=== PATIENT | male | born 1960 | race Caucasian/White ===

== ENCOUNTER 2016-06-20 16:23 | Emergency (ER) | payer MEDICARE ==
[2016-06-20 16:56] VITALS: PULSE 86; RESP 18
[2016-06-20 19:22] VITALS: BP 127/58; TEMP 98.8
[2016-06-20 19:36] LABS: Basophils # (A) 0.1 k/uL (0-0.2); Basophils % (A) 1 %; CH 30.6; CHCM 34.9; Eosinophils # (A) 0.3 k/uL (0-0.7); Eosinophils % (A) 2 %; HDW 2.78; HGB 15.2 gm/dL (13.0-17.5); Luc % (Auto) 2; Lymphocytes % (A) 14 %; MCH 29.8 pg (25.0-35.0); MCHC 33.8 g/dL (31.0-37.0); MCV 88.1 fL (80.0-100.0); Mean Platelet Volume 7.8; Monocytes # (A) 1.2 k/uL (0-1.0); Monocytes % (A) 8 %; Neutrophils # (A) 10.1 k/uL (1.3-7.7); Neutrophils % (A) 73 %; RBC 5.11 m/uL (4.30-5.90); RDW 14.1 % (11.5-15.5); WBC 13.8 k/uL (3.8-10.6); WBC (Perox) 13.78
--- NOTE | 2016-06-20 19:38 | XR ---
EXAMINATION TYPE: XR foot complete LT DATE OF EXAM: 06/20/2016 7:32 PM COMPARISON: NONE HISTORY: Foot pain TECHNIQUE: 3 views FINDINGS: There is soft tissue swelling in the forefoot. There is a large plantar calcaneal spur. Met atarsals are intact. I see no fracture nor dislocation. There are no erosions. IMPRESSION: Calcaneal spurring. No fracture. Soft tissue swelling.
--- NOTE | 2016-06-20 19:39 | ED ---
Extremity Problem HPI - General Source: patient, RN notes reviewed Mode of arrival: wheelchair Limitations: no limitations <Malcolm Rosenberg - Last Filed: 06/20/16 19:37> <Ovidio Castaneda - Last Filed: 06/20/16 21:14> - General Chief complaint: Extremity Problem,Nontraumatic Stated complaint: Left Leg Swollen/Pain Time Seen by Provider: 06/20/16 18:59 - History of Present Illness Initial comments: 55-year-old male presents emergency Department with chief complaint left foot pain. Patient states started over the last day or so. Patient denies any trauma. Patient states he has some achy pain at rest but states it's intense pain when he steps on it. Patient denies any previous issues or known trauma. Patient states that his legs are normally so swollen which she takes Lasix 2 times a day for. Patient denies any increased swelling. Patient denies any redness, open sores, rashes. Patient states it's in the arch of his foot with states it does radiate up into his calf sometimes. Patient states he does have bad knee has left side but states it has not given any more trouble than usual. Patient denies any discoloration of his foot. Patient offers no complaints. ( Malcolm Rosenberg) - Related Data Home Medications Medication Instructions Recorded Confirmed Multivitamin [Men's Multi-Vitamin] 1 tab PO DAILY 03/19/14 06/20/16 Albuterol Sulfate [Proair Hfa] 2 puff INHALATION RT-Q6H PRN 07/06/14 06/20/16 Aspirin EC [Ecotrin] 325 mg PO DAILY 07/06/14 06/20/16 amLODIPine BESYLATE [Amlodipine 5 mg PO DAILY 07/06/14 06/20/16 Besylate] Albuterol Nebulized [Ventolin 2.5 mg INHALATION RT-QID PRN 07/23/14 06/20/16 Nebulized] hydrALAZINE HCL [Apresoline] 25 mg PO BID 07/23/14 06/20/16 Warfarin [Coumadin] 2.5 mg PO HS 11/14/14 06/20/16 Warfarin [Coumadin] 5 mg PO HS 11/14/14 06/20/16 Furosemide [Lasix] 40 mg PO BID@0900,1600 05/18/15 06/20/16 Lisinopril-Hctz 20-25 mg 1 tab PO DAILY 05/19/15 06/20/16 [Zestoretic 20-25] HYDROcodone/APAP 7.5-325MG [[place] 1 tab PO Q6HR PRN 06/20/16 06/20/16 7.5-325] Previous Rx's Medication Instructions Recorded Atorvastatin [Lipitor] 40 mg PO HS #30 tab 07/11/14 Metoprolol Tartrate [Lopressor] 50 mg PO TID #90 tab 07/11/14 Nitroglycerin Sl Tabs [Nitrostat] 0.4 mg SUBLINGUAL Q5M PRN #50 tab 07/11/14 Indomethacin [Indocin] 50 mg PO TID #30 capsule 06/20/16 Allergies Allergy/AdvReac Type Severity Reaction Status Date / Time No Known Allergies Allergy Verified 06/20/16 19:23 Review of Systems ROS Other: All systems not noted in ROS Statement are negative. <Malcolm Rosenberg - Last Filed: 06/20/16 19:37> ROS Other: All systems not noted in ROS Statement are negative. <Ovidio Castaneda - Last Filed: 06/20/16 21:14> ROS Statement: Those systems with pertinent positive or pertinent negative responses have been documented in the HPI. Past Medical History Past Medical History: Atrial Fibrillation, Asthma, Heart Failure, Hypertension, Sleep Apnea/CPAP/BIPAP Additional Past Medical History / Comment(s): 2L O2 dependant. arthritis - L knee, R ankle. Sleep apnea - home BiPap. irregular heart rate. MRSA infections on forehead,right groin,left axilla History of Any Multi-Drug Resistant Organisms: MRSA Date of last positivie culture/infection: 03/07/15 MDRO Source:: Right Forearm Past Surgical History: Tonsillectomy Past Anesthesia/Blood Transfusion Reactions: No Reported Reaction Past Psychological History: No Psychological Hx Reported Smoking Status: Former smoker Past Alcohol Use History: Occasional Additional Past Alcohol Use History / Comment(s): 3 drinks per week Past Drug Use History: Marijuana Additional Drug Use History / Comment(s): occassional marijuana use - Past Family History Father Family Medical History: Hypertension, Myocardial Infarction ([place]) Mother Family Medical History: Cancer, Diabetes Mellitus Additional Family Medical History / Comment(s): of breast cancer Sister(s) Family Medical History: Cancer Additional Family Medical History / Comment(s): breast cancer - mastectomy <Malcolm Rosenberg - Last Filed: 06/20/16 19:37> General Exam Limitations: no limitations General appearance: alert, in no apparent distress Head exam: Present: atraumatic, normocephalic, normal inspection Respiratory exam: Present: normal lung sounds bilaterally. Absent: respiratory distress, wheezes, rales, rhonchi, stridor Cardiovascular Exam: Present: regular rate, normal rhythm, normal heart sounds. Absent: systolic murmur, diastolic murmur, rubs, gallop, clicks Extremities exam: Present: other (Mild tenderness to plantar surface of left foot pedal pulses equal bilaterally, there is pitting edema noted bilaterally there is no calf tenderness patient is full range of motion of lower extremity) Skin exam: Present: warm, dry <Malcolm Rosenberg - Last Filed: 06/20/16 19:37> General appearance: alert, in no apparent distress Head exam: Present: atraumatic, normocephalic, normal inspection Eye exam: Present: normal appearance, PERRL, EOMI. Absent: scleral icterus, conjunctival injection, periorbital swelling ENT exam: Present: normal exam, mucous membranes moist Neck exam: Present: normal inspection. Absent: tenderness, meningismus, lymphadenopathy Respiratory exam: Present: normal lung sounds bilaterally. Absent: respiratory distress, wheezes, rales, rhonchi, stridor Cardiovascular Exam: Present: regular rate, normal rhythm, normal heart sounds. Absent: systolic murmur, diastolic murmur, rubs, gallop, clicks GI/Abdominal exam: Present: soft, normal bowel sounds. Absent: distended, tenderness, guarding, rebound, rigid Extremities exam: Present: normal inspection, full ROM, normal capillary refill. Absent: tenderness, pedal edema, joint swelling, calf tenderness Back exam: Present: normal inspection Neurological exam: Present: alert, oriented X3, CN II-XII intact Psychiatric exam: Present: normal affect, normal mood Skin exam: Present: warm, dry, intact, normal color. Absent: rash <Ovidio Castaneda - Last Filed: 06/20/16 21:14> Course <Malcolm Rosenberg - Last Filed: 06/20/16 19:37> <Ovidio Castaneda - Last Filed: 06/20/16 21:14> Vital Signs 06/20/16 06/20/16 16:52 19:18 Temperature 98.7 F 98.8 F Pulse Rate 86 86 Respiratory 18 18 Rate Blood Pressure 121/66 127/58 O2 Sat by Pulse 96 96 Oximetry - Reevaluation(s) Reevaluation #1: 06/20/16 21:09 Patient's pain breathing or improved this time (Ovidio Castaneda) Reevaluation #2: 06/20/16 21:09 Patient consult regarding seeing a hospital, but to try outpatient therapy ( Ovidio Castaneda) Medical Decision Making <Malcolm Rosenberg - Last Filed: 06/20/16 19:37> - Lab Data Result diagrams: 06/20/16 19:15 06/20/16 19:15 - Radiology Data Radiology results: report reviewed (X-ray left foot. negative for acute disease , chest x-ray negative for acute disease,(s) lower extremity negative for DVT), image reviewed <Ovidio Castaneda - Last Filed: 06/20/16 21:14> - Medical Decision Making 55 male to the ER with left foot pain. Patient has left ankle pain worse with standing and left ankle. Patient has no real physical activity, likely swelling and mild erythema. Likely gout. Patient be treated appropriately, and formerly does have worsening kidney function to increase oral intake of fluids, patient's pain is currently controlled in the emergency room. Patient can be discharged home (Ovidio Castaneda) - Lab Data Lab Results 06/20/16 06/20/16 06/20/16 Range/Units 19:15 19:15 19:15 WBC 13.8 H (3.8-10.6) k/uL RBC 5.11 (4.30-5.90) m/uL Hgb 15.2 (13.0-17.5) gm/dL Hct 45.0 (39.0-53.0) % MCV 88.1 (80.0-100.0) fL MCH 29.8 (25.0-35.0) pg MCHC 33.8 (31.0-37.0) g/dL RDW 14.1 (11.5-15.5) % Plt Count 258 (150-450) k/uL Neutrophils % 73 % Lymphocytes % 14 % Monocytes % 8 % Eosinophils % 2 % Basophils % 1 % Neutrophils # 10.1 H (1.3-7.7) k/uL Lymphocytes # 2.0 (1.0-4.8) k/uL Monocytes # 1.2 H (0-1.0) k/uL Eosinophils # 0.3 (0-0.7) k/uL Basophils # 0.1 (0-0.2) k/uL PT 48.8 H (9.0-12.0) sec INR 4.9 (<1.1) Sodium 140 (137-145) mmol/L Potassium 3.8 (3.5-5.1) mmol/L Chloride 99 (98-107) mmol/L Carbon Dioxide 27 (22-30) mmol/L Anion Gap 14 mmol/L BUN 31 H (9-20) mg/dL Creatinine 2.10 H (0.66-1.25) mg/dL Est GFR (MDRD) Af Amer 40 (>60 ml/min/1.73 sqM) Est GFR (MDRD) Non-Af 33 (>60 ml/min/1.73 sqM) Glucose 106 H (74-99) mg/dL Calcium 9.0 (8.4-10.2) mg/dL Total Bilirubin 0.7 (0.2-1.3) mg/dL AST 23 (17-59) U/L ALT 37 (21-72) U/L Alkaline Phosphatase 57 (38-126) U/L C-Reactive Protein 48.8 H (<10.0) mg/L Total Protein 7.0 (6.3-8.2) g/dL Albumin 4.1 (3.5-5.0) g/dL Disposition <Malcolm Rosenberg - Last Filed: 06/20/16 19:37> <Ovidio Castaneda - Last Filed: 06/20/16 21:14> Clinical Impression: Gout, Morbid exogenous obesity, Gout of left ankle Disposition: HOME SELF-CARE Condition: Fair Prescriptions: Indomethacin [Indocin] 50 mg PO TID #30 capsule Referrals: Zak Padilla MD [Primary Care Provider] - 1-2 days
[2016-06-20 19:45] LABS: C Reactive Protein 48.8 mg/L (<10.0); Potassium 3.8 mmol/L (3.5-5.1); Total Bilirubin 0.7 mg/dL (0.2-1.3)
--- NOTE | 2016-06-20 20:05 | US ---
EXAMINATION TYPE: US venous doppler duplex LE LT DATE OF EXAM: 06/20/2016 7:55 PM COMPARISON: NONE CLINICAL HISTORY: Pain. Left leg pain and swelling SIDE PERFORMED: Left VESSELS IMAGED: External Iliac Vein (EIV) Common Femoral Vein Deep Femoral Vein Greater Saphenous Vein * Femoral Vein Popliteal Vein Small Saphenous Vein * Proximal Calf Veins (* superficial vessels) TECHNOLOGIST IMPRESSION: Morbidly obese pt, difficult exam Left Leg: Negative for DVT IMPRESSION: Negative exam. No evidence of deep venous thrombosis in the left leg.
[2016-06-20 20:41] LABS: INR 4.9 (<1.1); Prothrombin Time 48.8 sec (9.0-12.0)
[2016-06-20] MEDS ORDERED: SODIUM CHLORIDE 0.9% 500 ML IV STA (21:06)
[2016-06-20] MEDS ORDERED: KETOROLAC 30 MG/ML 1 ML VIAL IVP STA (21:06)
[2016-06-20] MEDS ORDERED: MORPHINE SULFATE 4 MG/ML SYRINGE IVP STA (21:06)
[2016-06-20] MEDS ORDERED: ACETAMINOPHEN IV (For NPO) 1,000 MG in EMPTY BAG 1 BAG IVPB STA (21:06)
[2016-06-20] MEDS ORDERED: DEXAMETHASONE SOD PHOSPHATE 10 MG/ML 1 ML VIAL IV STA (21:06)
[2016-06-20] MEDS ORDERED: IPRATROPIUM-ALBUTEROL 3 ML NEB INHALATION STA (21:08)
--- NOTE | 2016-06-20 21:51 | XR ---
EXAMINATION TYPE: XR chest 1V portable DATE OF EXAM: 06/20/2016 9:42 PM COMPARISON: 09/18/2015 HISTORY: Foot pain TECHNIQUE: Single frontal view of the chest is obtained. FINDINGS: There is no heart failure nor confluent pneumonic infiltrate. There are no hilar masses. C ostophrenic angles are clear. Bony thorax is intact. IMPRESSION: No active cardiopulmonary disease. No change.
== END 2016-06-20 22:45 | disposition home or self-care (01) ==
LOC: EC 16:23
DX: M10.9 Gout, unspecified (principal); E66.09 Other obesity due to excess calories; I50.9 Heart failure, unspecified; M19.90 Unspecified osteoarthritis, unspecified site; I10 Essential (primary) hypertension; I48.91 Unspecified atrial fibrillation; J45.909 Unspecified asthma, uncomplicated; Z53.20 Procedure and treatment not carried out because of patient's decision for unspecified reasons; Z86.14 Personal history of Methicillin resistant Staphylococcus aureus infection; Z87.891 Personal history of nicotine dependence; Z79.01 Long term (current) use of anticoagulants; Z79.82 Long term (current) use of aspirin; Z79.899 Other long term (current) drug therapy; Z99.81 Dependence on supplemental oxygen
CPT/HCPCS: 36415; 80053; 85025; 85610; 86140; 71010; 73630; 93971; 99284; 96365; 96375 ×3; J2270; J1100; J1885; J0131

== ENCOUNTER 2016-11-22 14:48 | Emergency (ER) | payer MEDICARE ==
[2016-11-22 15:09] VITALS: BP 133/58; PULSE 84; RESP 20; TEMP 98.2
[2016-11-22] MEDS ORDERED: MORPHINE SULFATE 10 MG/ML SYRINGE IM STA (15:38)
--- NOTE | 2016-11-22 15:49 | ED ---
Extremity Problem HPI - General Chief complaint: Extremity Problem,Nontraumatic Stated complaint: Knee Pain Time Seen by Provider: 11/22/16 15:10 Source: patient, RN notes reviewed Mode of arrival: wheelchair Limitations: no limitations - History of Present Illness Initial comments: Patient is a 56-year-old male presents emergency room for evaluation of left knee pain. Patient states she has a history of chronic knee pain from arthritis. Patient states he was moving boxes around yesterday. Patient states today he woke up and has been having worsening left knee pain. Patient states the pain is radiating to his calf and it also feels very tight. Patient states he takes Coumadin daily for A. fib. Patient denies history of DVTs or PEs. Patient states he's having 10 out of 10 knee pain. Patient states he is taking Clio at home with no relief of symptoms. Patient denies any specific injury or trauma to his knee recently. Patient denies increased swelling. Patient denies numbness or tingling in his toes. Patient denies any other symptoms or complaints. - Related Data Home Medications Medication Instructions Recorded Confirmed Multivitamin [Men's Multi-Vitamin] 1 tab PO DAILY 03/19/14 11/22/16 Albuterol Sulfate [Proair Hfa] 2 puff INHALATION RT-Q6H PRN 07/06/14 11/22/16 Aspirin EC [Ecotrin] 325 mg PO DAILY 07/06/14 11/22/16 amLODIPine BESYLATE [Amlodipine 5 mg PO DAILY 07/06/14 11/22/16 Besylate] hydrALAZINE HCL [Apresoline] 25 mg PO BID 07/23/14 11/22/16 Warfarin [Coumadin] 2.5 mg PO HS 11/14/14 11/22/16 Warfarin [Coumadin] 5 mg PO HS 11/14/14 11/22/16 Furosemide [Lasix] 40 mg PO TID 05/18/15 11/22/16 Lisinopril-Hctz 20-25 mg 1 tab PO DAILY 05/19/15 11/22/16 [Zestoretic 20-25] HYDROcodone/APAP 7.5-325MG [[place] 1 tab PO Q6HR PRN 06/20/16 11/22/16 7.5-325] Previous Rx's Medication Instructions Recorded Atorvastatin [Lipitor] 40 mg PO HS #30 tab 02/17/15 Metoprolol Tartrate [Lopressor] 50 mg PO TID #90 tab 07/11/14 Nitroglycerin Sl Tabs [Nitrostat] 0.4 mg SUBLINGUAL Q5M PRN #50 tab 07/11/14 Orphenadrine [Norflex] 100 mg PO Q12H PRN #12 tablet.er 11/22/16 Allergies Allergy/AdvReac Type Severity Reaction Status Date / Time No Known Allergies Allergy Verified 11/22/16 15:13 Review of Systems ROS Statement: Those systems with pertinent positive or pertinent negative responses have been documented in the HPI. ROS Other: All systems not noted in ROS Statement are negative. Past Medical History Past Medical History: Atrial Fibrillation, Asthma, Heart Failure, Hypertension, Sleep Apnea/CPAP/BIPAP Additional Past Medical History / Comment(s): 2L O2 dependant. arthritis - L knee, R ankle. Sleep apnea - home BiPap. irregular heart rate. MRSA infections on forehead,right groin,left axilla History of Any Multi-Drug Resistant Organisms: MRSA Date of last positivie culture/infection: 03/07/15 MDRO Source:: Right Forearm Past Surgical History: Tonsillectomy Past Anesthesia/Blood Transfusion Reactions: No Reported Reaction Past Psychological History: No Psychological Hx Reported Smoking Status: Former smoker Past Alcohol Use History: Occasional Past Drug Use History: Marijuana - Past Family History Father Family Medical History: Hypertension, Myocardial Infarction ([place]) Mother Family Medical History: Cancer, Diabetes Mellitus Additional Family Medical History / Comment(s): of breast cancer Sister(s) Family Medical History: Cancer Additional Family Medical History / Comment(s): breast cancer - mastectomy General Exam - General Exam Comments Initial Comments: Sitting in wheelchair, no acute distress. Limitations: no limitations General appearance: alert, in no apparent distress Head exam: Present: atraumatic, normocephalic, normal inspection Eye exam: Present: normal appearance ENT exam: Present: normal exam Neck exam: Present: normal inspection Respiratory exam: Present: normal lung sounds bilaterally. Absent: respiratory distress Cardiovascular Exam: Present: regular rate, normal rhythm, normal heart sounds Left Knee exam: Present: tenderness (Tenderness on palpating over bilateral knee joints and over patella), swelling. Absent: full ROM Lower Leg exam: Present: normal inspection. Absent: palpable cord, Homans' sign Ankle exam: Present: normal inspection, full ROM. Absent: tenderness Foot/Toe exam: Present: normal inspection, full ROM. Absent: tenderness Neurovascular tendon exam: Present: no vascular compromise. Absent: pulse deficit (2+ dorsal pedal and posterior tibial pulses), abnormal cap refill ( Capillary refill less than 2 seconds) Back exam: Present: normal inspection Neurological exam: Present: alert, oriented X3, CN II-XII intact Psychiatric exam: Present: normal affect, normal mood Skin exam: Present: warm, dry, intact, normal color. Absent: rash Course Vital Signs 11/22/16 15:06 Temperature 98.2 F Pulse Rate 84 Respiratory 20 Rate Blood Pressure 133/58 O2 Sat by Pulse 96 Oximetry Medical Decision Making - Medical Decision Making Patient is a 56-year-old male presents emergency room for evaluation of acute on chronic left knee pain. Patient also complaining of some calf tightness/ tenderness. Left lower extremity venous Doppler ultrasound negative for DVT. No redness or heat at the knee joint. Patient advised to follow-up with either his primary care provider or sensor specialist next week. Patient states he understands her diagnosis discussed with him. Return parameters discussed. - Radiology Data Radiology results: report reviewed, image reviewed Disposition Clinical Impression: Chronic pain of left knee Disposition: HOME SELF-CARE Condition: Good Instructions: Arthralgia (ED) Additional Instructions: Continue with at home pain medications. Please follow up with primary care provider or sensor specialist in 1-2 days. If any new symptom arises or symptoms worsen, return to ER as soon as possible. Prescriptions: Orphenadrine [Norflex] 100 mg PO Q12H PRN #12 tablet.er PRN Reason: Pain Referrals: Zak Padilla MD [Primary Care Provider] - 1-2 days Time of Disposition: 16:50
--- NOTE | 2016-11-22 16:39 | US ---
EXAMINATION TYPE: US venous doppler duplex LE LT DATE OF EXAM: 11/22/2016 4:27 PM COMPARISON: NONE CLINICAL HISTORY: Pain. SIDE PERFORMED: Left TECHNIQUE: The lower extremity deep venous system is examined utilizing real time linear array sonog barbara with graded compression, doppler sonography and color-flow sonography. VESSELS IMAGED: External Iliac Vein (EIV) Common Femoral Vein Deep Femoral Vein Greater Saphenous Vein * Femoral Vein Popliteal Vein Proximal Calf Veins (* superficial vessels) Morbidly obese patient, somewhat limiting exam, negative as visualized. Left Leg: Negative for DVT IMPRESSION: 1. Normal left lower extremity deep venous ultrasound without evidence of deep venous thrombosis.
== END 2016-11-22 17:03 | disposition home or self-care (01) ==
LOC: EC 14:48
DX: M25.562 Pain in left knee (principal); G89.29 Other chronic pain; I48.91 Unspecified atrial fibrillation; I11.0 Hypertensive heart disease with heart failure; I50.9 Heart failure, unspecified; Z86.14 Personal history of Methicillin resistant Staphylococcus aureus infection; Z87.891 Personal history of nicotine dependence; Z79.01 Long term (current) use of anticoagulants; Z79.82 Long term (current) use of aspirin
CPT/HCPCS: 99283 ×2; 96372 ×2; 93971; J2270

== ENCOUNTER → 2017-01-22 | Outpatient (CLI) | payer MEDICARE ==
[2017-01-22 10:05] LABS: ALT 38 U/L (21-72); AST 19 U/L (17-59); Blood Urea Nitrogen 23 mg/dL (9-20); Non-African American GFR(MDRD) >60 (>60 ml/min/1.73 sqM)
== END | disposition home or self-care (01) ==
LOC: LABWHC1 08:53
PROVIDERS: ATTEND Podiatrist
DX: M10.9 Gout, unspecified (principal)
CPT/HCPCS: 36415; 82565; 84450; 84460; 84520; 84550

== ENCOUNTER 2018-11-28 16:52 | Emergency (ER) | payer MEDICARE ==
[2018-11-28 16:55] VITALS: BP 144/74; PULSE 92; RESP 18; TEMP 98.6
[2018-11-28] MEDS ORDERED: CEPHALEXIN 500MG STARTER PACK 4 CAP BTL PO STA (17:13)
[2018-11-28] MEDS ORDERED: SULFAMETH-TMP DS STARTER PACK 2 TAB BTL PO STA (17:13)
--- NOTE | 2018-11-28 17:15 | ED ---
Extremity Problem HPI - General Chief complaint: Extremity Problem,Nontraumatic Stated complaint: left leg Time Seen by Provider: 11/28/18 16:55 Source: patient Mode of arrival: ambulatory Limitations: no limitations - History of Present Illness Initial comments: 58-year-old male with history of atrial fibrillation on anticoagulation therapy presented for chief complaint of left anterior ruggiero pain. Patient states he had a small break the skin that use to itch. He states that the area is not painful or surrounding redness. Patient denies any posterior calf pain. He denies history of blood clots, recent surgeries, immobilzation, cancer. Patient has a chest pain charts of breath. Denies fever chills night sweats or flu like symptoms. Patient denies rapid progression of the erythema surrounding the break the skin he states is gradually been increasing over the past week. Remaining review of systems negative upon arrival patient appears normal signs of acute distress. Afebrile - Related Data Home Medications Medication Instructions Recorded Confirmed Multivitamin [Men's Multi-Vitamin] 1 tab PO DAILY 03/19/14 05/19/17 Albuterol Sulfate [Proair Hfa] 2 puff INHALATION RT-Q6H PRN 07/06/14 05/19/17 Aspirin EC [Ecotrin] 325 mg PO DAILY 07/06/14 05/19/17 amLODIPine BESYLATE [Amlodipine 5 mg PO DAILY 07/06/14 05/19/17 Besylate] hydrALAZINE HCL [Apresoline] 25 mg PO BID 07/23/14 05/19/17 Warfarin [Coumadin] 2.5 mg PO HS 11/14/14 05/19/17 Warfarin [Coumadin] 5 mg PO HS 11/14/14 05/19/17 Furosemide [Lasix] 40 mg PO TID 05/18/15 05/19/17 Lisinopril-Hctz 20-25 mg 1 tab PO DAILY 05/19/15 05/19/17 [Zestoretic 20-25] HYDROcodone/APAP 7.5-325MG [[place] 1 tab PO Q6HR PRN 06/20/16 05/19/17 7.5-325] Allopurinol [Zyloprim] 300 mg PO DAILY 05/19/17 05/19/17 buPROPion XL [Wellbutrin Xl] 150 mg PO DAILY 05/19/17 05/19/17 Previous Rx's Medication Instructions Recorded Atorvastatin [Lipitor] 40 mg PO HS #30 tab 07/11/14 Metoprolol Tartrate [Lopressor] 50 mg PO TID #90 tab 07/11/14 Nitroglycerin Sl Tabs [Nitrostat] 0.4 mg SUBLINGUAL Q5M PRN #50 tab 07/11/14 Cephalexin [Keflex] 500 mg PO Q6HR 7 Days #28 cap 11/28/18 Sulfamethox-Tmp 800-160Mg [Bactrim 1 tab PO Q12HR 7 Days #14 tab 11/28/18 DS 800-160 mg] Allergies Allergy/AdvReac Type Severity Reaction Status Date / Time No Known Allergies Allergy Verified 11/28/18 16:55 Review of Systems ROS Statement: Those systems with pertinent positive or pertinent negative responses have been documented in the HPI. ROS Other: All systems not noted in ROS Statement are negative. Past Medical History Past Medical History: Atrial Fibrillation, Asthma, Heart Failure, COPD, Hypertension, Osteoarthritis ([place]), Pneumonia, Sleep Apnea/CPAP/BIPAP Additional Past Medical History / Comment(s): HOME O2 AT 2L/NC ATC, ELAINE WITH BIPAP USE, PAST CELLULITIS R LOWER ARM, 2015 MRSA INFECTION R ARM, GOUT BILATERAL FEET. History of Any Multi-Drug Resistant Organisms: MRSA Date of last positivie culture/infection: 03/07/15 MDRO Source:: Right Forearm Past Surgical History: Tonsillectomy Additional Past Surgical History / Comment(s): I&D R ARM Past Anesthesia/Blood Transfusion Reactions: No Reported Reaction Past Psychological History: No Psychological Hx Reported Smoking Status: Former smoker Past Alcohol Use History: Occasional Past Drug Use History: None Reported - Past Family History Father Family Medical History: Hypertension, Myocardial Infarction ([place]) Additional Family Medical History / Comment(s): Father of a [place] at the age of 72 yrs. Mother Family Medical History: Cancer, Diabetes Mellitus Additional Family Medical History / Comment(s): of breast cancer at the age of 66yrs. Sister(s) Family Medical History: Cancer Additional Family Medical History / Comment(s): breast cancer - mastectomy General Exam - General Exam Comments Initial Comments: General: The patient is awake and alert, in no distress, and does not appear acutely ill. Eye: +3 mm pupils are equal, round and reactive to light, extra-ocular movements are intact. No nystagmus. There is normal conjunctiva bilaterally. No signs of icterus. Ears, nose, mouth and throat: There are moist mucous membranes and no oral lesions. Neck: The neck is supple, there is no tenderness or JVD. Cardiovascular: There is a regular rate and rhythm. No murmur, rub or gallop is appreciated. Respiratory: Lungs are clear to auscultation, respirations are non-labored, breath sounds are equal. No wheezes, stridor, rales, or rhonchi. Musculoskeletal: Normal ROM, no tenderness. Strength 5/5. Sensation intact. Pulses equal bilaterally 2+. Neurological: A&O x 3. CN II-XII intact, There are no obvious motor or sensory deficits. Coordination appears grossly intact. Speech is normal. Skin: Skin is warm and dry and no rashes. Circular break in skin with surrounding erythema, mild surrounding excoriation. No pain to palpation of the posterior calm. Anterior swelling. (-) Homans. +2 DP. Psychiatric: Cooperative, appropriate mood & affect, normal judgment. Limitations: no limitations Course Vital Signs 11/28/18 16:52 Temperature 98.6 F Pulse Rate 92 Respiratory 18 Rate Blood Pressure 144/74 O2 Sat by Pulse 95 Oximetry Medical Decision Making - Medical Decision Making 58-year-old male presenting for left anterior ruggiero swelling and redness. Physical examination findings concerning for cellulitis. Patient is neurovascular intact. Negative Homans no pedal patient the posterior calf. Patient is on anticoagulation therapy. Patient denies any flulike symptoms. Patient does not appear toxic. At this time will treat patient with oral antibiotics with coverage for MRSA as patient has history. She is agreeable care for discharge at this time. Strict return for rigors were discussed at length patient. Patient was evaluated and perspire attending provider Dr. Samira Beckham agreeable care plan discharge at this time. Disposition Clinical Impression: Cellulitis of right leg Disposition: HOME SELF-CARE Condition: Good Instructions (If sedation given, give patient instructions): Cellulitis (ED) Additional Instructions: Please use medication as discussed. Please follow-up with family doctor in the next 2 days. Please return to emergency room if the symptoms increase or worsen or for any other concerns. Prescriptions: Sulfamethox-Tmp 800-160Mg [Bactrim DS 800-160 mg] 1 tab PO Q12HR 7 Days #14 tab Cephalexin [Keflex] 500 mg PO Q6HR 7 Days #28 cap Is patient prescribed a controlled substance at d/c from ED?: No Referrals: Zak Padilla MD [Primary Care Provider] - 1-2 days Time of Disposition: 17:25
== END 2018-11-28 17:34 | disposition home or self-care (01) ==
LOC: EC 16:52
DX: L03.115 Cellulitis of right lower limb (principal); I48.91 Unspecified atrial fibrillation; J44.9 Chronic obstructive pulmonary disease, unspecified; I10 Essential (primary) hypertension; G47.33 Obstructive sleep apnea (adult) (pediatric); Z79.82 Long term (current) use of aspirin; Z79.01 Long term (current) use of anticoagulants; Z79.899 Other long term (current) drug therapy; Z87.891 Personal history of nicotine dependence
CPT/HCPCS: 99283

== ENCOUNTER → 2019-01-12 | Outpatient (CLI) | payer MEDICARE ==
--- NOTE | 2019-01-19 09:05 | P.ARTDOP ---
Arterial Doppler LOWER EXTREMITY ARTERIAL DOPPLER: DATE OF SERVICE: 01/12/2019 Reason for study: Left leg wound. Doppler waveforms: Multiphasic bilaterally throughout. Pulse volume recording: []. Pressure gradients: None. Ankle-brachial indices: Greater than 1 bilaterally. Toe pressures: [] on the right, [] on the left Impression: Normal study.
== END | disposition home or self-care (01) ==
LOC: RADUSWWP 14:06
PROVIDERS: ATTEND Podiatrist
DX: I87.312 Chronic venous hypertension (idiopathic) with ulcer of left lower extremity (principal); I11.0 Hypertensive heart disease with heart failure; J44.9 Chronic obstructive pulmonary disease, unspecified; G47.30 Sleep apnea, unspecified; I50.9 Heart failure, unspecified; L97.829 Non-pressure chronic ulcer of other part of left lower leg with unspecified severity
CPT/HCPCS: 93922

== ENCOUNTER 2019-02-22 12:56 | Emergency (ER) | payer MEDICARE ==
[2019-02-22 13:00] VITALS: RESP 18
[2019-02-22] MEDS ORDERED: LIDOCAINE 1%-EPI 1:100,000 20 ML VIAL SQ STA (13:55)
[2019-02-22] MEDS ORDERED: MORPHINE SULFATE 4 MG/ML SYRINGE IVP STA (14:08)
[2019-02-22] MEDS ORDERED: GELATIN SPONGE,ABSORB (LARGE) 1 EACH SPONGE TOPICAL STA (14:12)
--- NOTE | 2019-02-22 14:12 | ED ---
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 He reports he is following with Dr. Luciano for wound care. Patient reports that and he has been placed on steroid cream and antibiotic cream. Is not on any oral antibiotic. Patient presents today after opened up and started bleeding today. he is on coumadin. PAtient reports that he has no pain, and denies any other complaints. - Related Data Home Medications Medication Instructions Recorded Confirmed Albuterol Sulfate [Proair Hfa] 2 puff INHALATION RT-Q6H PRN 07/06/14 02/22/19 Aspirin EC [Ecotrin] 325 mg PO DAILY 07/06/14 02/22/19 amLODIPine BESYLATE [Amlodipine 5 mg PO DAILY 07/06/14 02/22/19 Besylate] hydrALAZINE HCL [Apresoline] 25 mg PO BID 07/23/14 02/22/19 Warfarin [Coumadin] 2.5 mg PO HS 11/14/14 02/22/19 Warfarin [Coumadin] 5 mg PO HS 11/14/14 02/22/19 Furosemide [Lasix] 40 mg PO TID 05/18/15 02/22/19 Lisinopril-Hctz 20-25 mg 1 tab PO DAILY 05/19/15 02/22/19 [Zestoretic 20-25] HYDROcodone/APAP 7.5-325MG [[place] 1 tab PO Q6HR PRN 06/20/16 02/22/19 7.5-325] Allopurinol [Zyloprim] 300 mg PO DAILY 05/19/17 02/22/19 buPROPion XL [Wellbutrin Xl] 150 mg PO DAILY 05/19/17 02/22/19 Isosorbide Mononitrate [Isosorbide 30 mg PO DAILY 02/22/19 02/22/19 Mononitrate ER] Multivit-Min/Folic/Vit K/Lycop 1 tab PO DAILY 02/22/19 02/22/19 [Men's Multivitamin Tablet] Previous Rx's Medication Instructions Recorded Atorvastatin [Lipitor] 40 mg PO HS #30 tab 07/11/14 Metoprolol Tartrate [Lopressor] 50 mg PO TID #90 tab 07/11/14 Nitroglycerin Sl Tabs [Nitrostat] 0.4 mg SUBLINGUAL Q5M PRN #50 tab 07/11/14 Allergies Allergy/AdvReac Type Severity Reaction Status Date / Time No Known Allergies Allergy Verified 02/22/19 13:19 Review of Systems ROS Statement: Those systems with pertinent positive or pertinent negative responses have been documented in the HPI. ROS Other: All systems not noted in ROS Statement are negative. Past Medical History Past Medical History: Atrial Fibrillation, Asthma, Heart Failure, COPD, Hypertension, Osteoarthritis (OA), Pneumonia, Sleep Apnea/CPAP/BIPAP Additional Past Medical History / Comment(s): HOME O2 AT 2L/NC ATC, ELAINE WITH BI PAP USE, PAST CELLULITIS R LOWER ARM, 2015 MRSA INFECTION R ARM, GOUT BILATERAL FEET. History of Any Multi-Drug Resistant Organisms: MRSA Date of last positivie culture/infection: 03/07/15 MDRO Source:: Right Forearm Past Surgical History: Tonsillectomy Additional Past Surgical History / Comment(s): I&D R ARM Past Anesthesia/Blood Transfusion Reactions: No Reported Reaction Past Psychological History: No Psychological Hx Reported Smoking Status: Former smoker Past Alcohol Use History: Occasional Past Drug Use History: None Reported - Past Family History Father Family Medical History: Hypertension, Myocardial Infarction (DC) Additional Family Medical History / Comment(s): Father of a DC at the age of 72 yrs. Mother Family Medical History: Cancer, Diabetes Mellitus Additional Family Medical History / Comment(s): of breast cancer at the age of 66yrs. Sister(s) Family Medical History: Cancer Additional Family Medical History / Comment(s): breast cancer - mastectomy General Exam - General Exam Comments Initial Comments: 58 year old male, morbid obesity. Limitations: physical limitation Head exam: Present: atraumatic, normocephalic, normal inspection Eye exam: Present: normal appearance, PERRL, EOMI. Absent: scleral icterus, conjunctival injection, periorbital swelling ENT exam: Present: normal exam, mucous membranes moist Neck exam: Present: normal inspection. Absent: tenderness, meningismus, lymphadenopathy Respiratory exam: Present: normal lung sounds bilaterally, wheezes. Absent: respiratory distress, rales, rhonchi, stridor Cardiovascular Exam: Present: regular rate, normal rhythm, normal heart sounds. Absent: systolic murmur, diastolic murmur, rubs, gallop, clicks GI/Abdominal exam: Present: soft, normal bowel sounds. Absent: distended, tenderness, guarding, rebound, rigid Left Lower Leg exam: Present: full ROM, erythema (patient has ulceration over lateral lower leg measuring 5cm by 3cm. Bleeding vessel from ulceration. ). Absent: normal inspection Ankle exam: Present: normal inspection, full ROM Foot/Toe exam: Present: normal inspection, full ROM Back exam: Present: normal inspection Neurological exam: Present: alert, oriented X3, CN II-XII intact Psychiatric exam: Present: normal affect, normal mood Skin exam: Present: warm, dry, intact, normal color. Absent: rash Course Vital Signs 02/22/19 02/22/19 02/22/19 12:58 14:18 16:34 Temperature 98.0 F 97.9 F Pulse Rate 79 88 88 Respiratory 18 18 18 Rate Blood Pressure 129/67 115/79 134/82 O2 Sat by Pulse 94 L 100 95 Oximetry Medical Decision Making - Medical Decision Making 58 year old male presents today for bleeding from chronic wound on L lower leg. Patient is on Coumadin, INR checked and elevated to 5.7. PAtient likely brushed against friable skin adn caused a varicose vein to open. With elevated INR, given Vit K and advised to hold coumadin for 3 days and recheck on Thursday. Patient wound was cauterized after cleaned with iodine, and I used electric cautery pen. Hemostasis completed. Discussed patient needs to follow up with wound care specialty. Discussed return parameters. - Lab Data Result diagrams: 02/22/19 14:00 02/22/19 14:00 Lab Results 02/22/19 02/22/19 02/22/19 Range/Units 14:00 14:00 14:00 WBC 13.2 H (3.8-10.6) k/uL RBC 5.18 (4.30-5.90) m/uL Hgb 16.1 (13.0-17.5) gm/dL Hct 46.3 (39.0-53.0) % MCV 89.4 (80.0-100.0) fL MCH 31.1 (25.0-35.0) pg MCHC 34.8 (31.0-37.0) g/dL RDW 14.8 (11.5-15.5) % Plt Count 266 (150-450) k/uL Neutrophils % 73 % Lymphocytes % 17 % Monocytes % 7 % Eosinophils % 1 % Basophils % 1 % Neutrophils # 9.6 H (1.3-7.7) k/uL Lymphocytes # 2.2 (1.0-4.8) k/uL Monocytes # 0.9 (0-1.0) k/uL Eosinophils # 0.1 (0-0.7) k/uL Basophils # 0.1 (0-0.2) k/uL PT 55.4 H (9.0-12.0) sec INR 5.7 H* (<1.2) APTT 43.2 H (22.0-30.0) sec Sodium 138 (137-145) mmol/L Potassium 3.3 L (3.5-5.1) mmol/L Chloride 100 (98-107) mmol/L Carbon Dioxide 29 (22-30) mmol/L Anion Gap 9 mmol/L BUN 34 H (9-20) mg/dL Creatinine 1.22 (0.66-1.25) mg/dL Est GFR (CKD-EPI)AfAm 76 (>60 ml/min/1.73 sqM) Est GFR (CKD-EPI)NonAf 66 (>60 ml/min/1.73 sqM) Glucose 84 (74-99) mg/dL Calcium 9.4 (8.4-10.2) mg/dL Total Bilirubin 0.6 (0.2-1.3) mg/dL AST 31 (17-59) U/L ALT 47 (21-72) U/L Alkaline Phosphatase 40 (38-126) U/L Total Protein 6.7 (6.3-8.2) g/dL Albumin 3.8 (3.5-5.0) g/dL - Radiology Data Radiology results: report reviewed Soft tissue wound along anterior left lower extremity. Advanced degenerative changes at the knee and moderate degenerative changes at the ankle. No acute osseous abnormality is evident. Disposition Clinical Impression: Elevated INR, Chronic wound of extremity, Bleeding from wound Disposition: HOME SELF-CARE Condition: Good Instructions (If sedation given, give patient instructions): Chronic Wound Care (ED) Additional Instructions: Patient is advised to hold the Coumadin for the next 2 days. Have follow-up with your primary care doctor and get this rechecked on Thursday. Follow-up with wound care clinic. Patient should keep the dressing clean and dry. Avoid any excessive irritation over the skin. The bleeding does occur hold firm pressure for 10 minutes. Is patient prescribed a controlled substance at d/c from ED?: No Referrals: Zak Pdailla MD [Primary Care Provider] - 1-2 days Time of Disposition: 16:10
[2019-02-22 14:15] LABS: Basophils # (A) 0.1 k/uL (0-0.2); Basophils % (A) 1 %; Eosinophils # (A) 0.1 k/uL (0-0.7); Eosinophils % (A) 1 %; HCT 46.3 % (39.0-53.0); HGB 16.1 gm/dL (13.0-17.5); Lymphocytes # (A) 2.2 k/uL (1.0-4.8); Lymphocytes % (A) 17 %; MCH 31.1 pg (25.0-35.0); MCHC 34.8 g/dL (31.0-37.0); MCV 89.4 fL (80.0-100.0); Mean Platelet Volume 6.2; Monocytes # (A) 0.9 k/uL (0-1.0); Monocytes % (A) 7 %; Neutrophils # (A) 9.6 k/uL (1.3-7.7); Neutrophils % (A) 73 %; Platelet Count 266 k/uL (150-450); RBC 5.18 m/uL (4.30-5.90); RDW 14.8 % (11.5-15.5); WBC 13.2 k/uL (3.8-10.6)
[2019-02-22 14:19] VITALS: PULSE 88
[2019-02-22 14:27] LABS: Partial Thromboplastin Time 43.2 sec (22.0-30.0); Prothrombin Time 55.4 sec (9.0-12.0)
[2019-02-22 14:38] LABS: INR 5.7 (<1.2)
[2019-02-22 14:39] LABS: Albumin 3.8 g/dL (3.5-5.0); Calcium 9.4 mg/dL (8.4-10.2); Potassium 3.3 mmol/L (3.5-5.1); Total Bilirubin 0.6 mg/dL (0.2-1.3); Total Protein 6.7 g/dL (6.3-8.2)
--- NOTE | 2019-02-22 15:39 | XR ---
EXAMINATION TYPE: XR tibia fibula LT DATE OF EXAM: 02/22/2019 COMPARISON: None HISTORY: Wound lateral left leg TECHNIQUE: 2 view left tibia and fibula FINDINGS: There is a soft tissue injury along the lateral aspect of the distal third lower extremity. No adjacent osseous abnormality is evident There are moderate to advanced degenerative changes at the knee joint space. Mild degenerative change s are at the ankle joint space. Mild diffuse soft tissue swelling is present at the ankle. Plantar an d Achilles tendon calcaneal heel spurs are present. IMPRESSION: 1. Soft tissue wound along the anterior lateral left lower extremity. 2. Advanced degenerative changes at the knee and moderate degenerative changes at the ankle. 3. No acute osseous abnormality is evident.
[2019-02-22] MEDS ORDERED: PHYTONADIONE ORAL 5 MG/5 ML ORAL.SYRG PO STA (16:09)
[2019-02-22 16:35] VITALS: BP 134/82; TEMP 97.9
== END 2019-02-22 16:49 | disposition home or self-care (01) ==
LOC: EC 12:56
DX: S71.102A Unspecified open wound, left thigh, initial encounter (principal); R79.1 Abnormal coagulation profile; I83.892 Varicose veins of left lower extremity with other complications; I48.91 Unspecified atrial fibrillation; I11.0 Hypertensive heart disease with heart failure; I50.9 Heart failure, unspecified; M10.9 Gout, unspecified; J44.9 Chronic obstructive pulmonary disease, unspecified; M19.90 Unspecified osteoarthritis, unspecified site; G47.33 Obstructive sleep apnea (adult) (pediatric); Z79.51 Long term (current) use of inhaled steroids; Z79.82 Long term (current) use of aspirin; Z79.01 Long term (current) use of anticoagulants; Z79.899 Other long term (current) drug therapy; Z99.89 Dependence on other enabling machines and devices; Z87.891 Personal history of nicotine dependence; Z99.81 Dependence on supplemental oxygen; Z86.14 Personal history of Methicillin resistant Staphylococcus aureus infection; Z87.2 Personal history of diseases of the skin and subcutaneous tissue; X58.XXXA Exposure to other specified factors, initial encounter
CPT/HCPCS: 36415; 80053; 85025; 85610; 85730; 73590; 99284; 96374; 12001; J2270

== ENCOUNTER → 2019-02-25 | Outpatient (CLI) | payer MEDICARE ==
[2019-02-25 10:47] LABS: INR 1.1 (<1.2); Prothrombin Time 11.7 sec (9.0-12.0)
== END | disposition home or self-care (01) ==
LOC: LABWHC1 09:41
PROVIDERS: ATTEND Physician Assistant Medical
DX: Z51.81 Encounter for therapeutic drug level monitoring (principal); Z79.01 Long term (current) use of anticoagulants
CPT/HCPCS: 36415; 85610

== ENCOUNTER → 2020-07-02 | Outpatient (CLI) | payer MEDICARE ==
--- NOTE | 2020-07-02 12:04 | XR ---
EXAMINATION TYPE: XR chest 2V DATE OF EXAM: 07/02/2020 COMPARISON: 05/19/2017 HISTORY: Shortness of breath TECHNIQUE: Frontal and lateral views of the chest are obtained. FINDINGS: Scattered senescent parenchymal changes noted. Hyperinflation compatible with COPD. No evidence for infiltrate. No evidence for atelectasis. Heart size is stable. Mediastinal structures are stable and grossly unremarkable. No evidence for hilar prominence. Degenerative changes dorsal spine. IMPRESSION: 1. No evidence for acute pulmonary disease.
[2020-07-02 13:46] LABS: Basophils # (A) 0.1 k/uL (0-0.2); Basophils % (A) 1 %; Eosinophils # (A) 0.2 k/uL (0-0.7); Eosinophils % (A) 2 %; HGB 16.5 gm/dL (13.0-17.5); Lymphocytes # (A) 1.6 k/uL (1.0-4.8); Lymphocytes % (A) 14 %; MCH 31.3 pg (25.0-35.0); MCHC 33.7 g/dL (31.0-37.0); Mean Platelet Volume 7.6; Monocytes # (A) 0.9 k/uL (0-1.0); Monocytes % (A) 8 %; Neutrophils # (A) 8.3 k/uL (1.3-7.7); Neutrophils % (A) 74 %; Platelet Count 232 k/uL (150-450); RBC 5.27 m/uL (4.30-5.90); RDW 14.4 % (11.5-15.5); WBC 11.3 k/uL (3.8-10.6)
[2020-07-02 14:07] LABS: ALT 39 U/L (4-49); AST 32 U/L (17-59); African American GFR (CKD) >90 (>60 ml/min/1.73 sqM); Albumin 4.1 g/dL (3.5-5.0); Alkaline Phosphatase 63 U/L (38-126); Anion Gap 11 mmol/L; Blood Urea Nitrogen 17 mg/dL (9-20); Calcium 9.3 mg/dL (8.4-10.2); Carbon Dioxide 31 mmol/L (22-30); Chloride 98 mmol/L (98-107); Glucose 108 mg/dL (74-99); Non-African American GFR(CKD) 78 (>60 ml/min/1.73 sqM); Potassium 3.3 mmol/L (3.5-5.1); Sodium 140 mmol/L (137-145); Total Bilirubin 0.8 mg/dL (0.2-1.3)
== END | disposition home or self-care (01) ==
LOC: RADXRMAIN 11:13
PROVIDERS: ATTEND Family Medicine
DX: R06.02 Shortness of breath (principal); I50.22 Chronic systolic (congestive) heart failure; I48.19 Other persistent atrial fibrillation
CPT/HCPCS: 71046; 80053; 83880; 85025

== ENCOUNTER → 2023-09-07 | Outpatient (CLI) | payer MEDICARE ==
[2023-09-07 15:50] LABS: Basophils # (A) 0.14 X 10*3/uL (0.00-0.10); Basophils % (A) 1.9 %; Eosinophils # (A) 0.21 X 10*3/uL (0.04-0.35); Eosinophils % (A) 2.8 %; HCT 42.8 % (39.6-50.0); HGB 13.9 g/dL (13.0-17.0); Lymphocytes # (A) 2.17 X 10*3/uL (0.90-5.00); Lymphocytes % (A) 29.3 %; MCH 30.2 pg (27.0-32.0); MCHC 32.5 g/dL (32.0-37.0); Mean Platelet Volume 9.9 FL (9.5-12.2); Monocytes # (A) 0.55 X 10*3/uL (0.20-1.00); Monocytes % (A) 7.4 %; NRBC Per 100 WBC 0 X 10*3/uL (0.00-0.01); Neutrophils % (A) 58.2 %; Platelet Count 223 X 10*3/uL (140-440); RDW 13.7 % (11.5-14.5)
[2023-09-07 16:17] LABS: ALT 13 U/L (10-49); AST 19 U/L (14-35); Albumin 4.1 g/dL (3.8-4.9); Albumin/Globulin Ratio 1.41 Ratio (1.60-3.17); Alkaline Phosphatase 81 U/L (41-126); BUN/Creat Ratio 13.89 Ratio (12.00-20.00); Blood Urea Nitrogen 12.5 mg/dL (9.0-27.0); Calcium 9.6 mg/dL (8.7-10.3); Carbon Dioxide 23.3 mmol/L (21.6-31.8); Chloride 104 mmol/L (96-109); Chol/HDL Ratio 5.19 Ratio; Globulin 2.9 g/dL (1.6-3.3); Glucose 93 mg/dL (70-110); LDL Cholesterol,Calculated 143.6 mg/dL (0.0-131.0); Potassium 4.6 mmol/L (3.5-5.5); Sodium 141 mmol/L (135-145); T4, Free (Free Thyroxine) 1.25 ng/dL (0.80-1.80); Total Bilirubin 0.4 mg/dL (0.3-1.2)
== END | disposition home or self-care (01) ==
LOC: LABWHC1 11:40
PROVIDERS: ATTEND Family Medicine
DX: I10 Essential (primary) hypertension (principal)
CPT/HCPCS: 36415; 80053; 80061; 84153; 84439; 84443; 85025